=== PATIENT | female | born 1950 | race Caucasian/White ===

== ENCOUNTER 2024-12-28 09:15 | Emergency (ER) | payer MEDICARE, OTHER, SELFPAY ==
[2024-12-28 09:24] VITALS: BP 163/87
--- NOTE | 2024-12-28 10:58 | ED.GENMED ---
History of Present Illness
General
Chief Complaint: Musculo-Skeletal Complaint
Time Seen by Provider: 12/28/24 09:55
History of Present Illness
History of Present Illness:
74-year-old female presents to the emergency department for evaluation of right groin pain rating to the right thigh for the past month. Pain seems to be random in nature but is definitively worse while sitting. Feels as though it may have
actually started after undergoing a vaginal ultrasound. She is able to sleep but wakes up with increased pain, seems to improve as she ambulates. Radiates between the right groin and the right knee, denies any low back pain but occasionally has
gluteal region pain. Has been prescribed gabapentin for this but feels it is not helping
Past History
Past History
ED Past Medical History: Hypercholesterolemia and Other (eczema)
Social History
Tobacco: Non-smoker
Personal:
Living: with family
Review of Systems
Review of Systems
Allergies reviewed?: Yes
All Other Systems: ROS reviewed and negative except as documented in HPI and ROS
Phy Exam
Physical Exam
Physical Exam:
GEN: Well appearing, NAD, WDWN
HEENT: Oral mucosa moist, no scleral icterus
Cardiac: Regular rate
Lung: No respiratory distress, no tachypnea
MSK: No gross deformity or injuries. Normal right hip range of motion with no reproduced pain. Normal sensation of the lower extremities
Skin: Good color, no pallor or jaundice, no rashes
Neuro: AO x3, moves all extremities freely
Psych: Calm, cooperative
Course
Orders/Labs/Results
Orders:
Orders
12/28/24 10:06
CR Hip - RT w/wo Pel 2-3 Vw* Urgent
Comment:
Reason For Exam: R groin/thigh pain
Include a pelvis x-ray?: Yes
Vital Signs
Initial and Last Documented VS:
Initial Vital Signs
Temp Pulse Resp BP Pulse Ox
98.6 F 104 16 163/87 97
12/28/24 09:24 12/28/24 09:24 12/28/24 09:24 12/28/24 09:24 12/28/24 09:24
Last Documented Vital Signs
Temp Pulse Resp BP Pulse Ox
98.6 F 78 18 154/79 98
12/28/24 09:24 12/28/24 11:17 12/28/24 11:17 12/28/24 11:17 12/28/24 11:17
MDM/Problems Addressed
MDM/Problems Addressed:
Unclear etiology as I am unable to reproduce the patient's pain on exam, she has normal pain-free range of motion of the right hip. Certainly could be a lumbosacral radiculopathy, we will trial a course of steroids as NSAIDs have been ineffective
*Critical Care Note
Total Time (30-74mins, 75-104mins- exclusive of procedures): Not Applicable
ED Attending Note
-
Portions of this chart may have been created with voice recognition software.� Occasional wrong word or��sound alike� substitutions may have occurred due to the inherent limitations of voice recognition software.
Discharge Plan
Departure
Patient Disposition: Home (Routine Discharge)
Date of Disposition: 12/28/24
Time of Disposition: 10:58
Patient with high blood pressure during this ER visit?: No
Discharge Problem:
Lumbar radiculopathy, acute
Instructions: Radiculopathy of the neck and back (including sciatica)
Prescriptions:
New
methylprednisolone [Medrol (Justus)] 4 mg tablets,dose pack
See Rx Instructions .ROUTE .COMPLEX Qty: 21 0RF
Rx Instructions:
orally per package directions
No Action
amoxicillin-pot clavulanate 1 TABLET tablet
1 tab PO Q12 Qty: 20 0RF
Referrals:
Tatiana Higgins DO [Family Provider] -
Interventions
Interventions:
*Risk Screen - Suicide Last Done: 12/28/24 11:00
*General Assessment Last Done: 12/28/24 11:00
*Neglect/Abuse Screening Last Done: 12/28/24 11:00
*ED- Fall Risk Assessment Last Done: 12/28/24 11:00
*Nursing Disposition Last Done: 12/28/24 11:17
ED-Musculoskeletal Assessment Last Done: 12/28/24 11:00
Discharge Date and Time
Discharge Date/Time: 12/28/24 11:18
Print Language: PASHTO
[2024-12-28 11:17] VITALS: BP 154/79
== END 2024-12-28 11:18 | disposition home or self-care (01) ==
LOC: EMR 09:15
PROVIDERS: EMERGENCY PHYSICIAN Emergency Medicine; FAMILY PHYSICIAN Family Medicine
DX: M47.26 Other spondylosis with radiculopathy, lumbar region (principal); R10.31 Right lower quadrant pain; M25.561 Pain in right knee; E78.00 Pure hypercholesterolemia, unspecified; L30.9 Dermatitis, unspecified
CPT/HCPCS: 99283; 73502